=== PATIENT | male | born 1980 | race Caucasian/White ===

== ENCOUNTER 2019-12-23 10:30 | Inpatient (IN) ==
[2019-12-23] MEDS ORDERED: 0.9 % SODIUM CHLORIDE 250 ML IV SCH ×2 (11:00→15:33)
[2019-12-23] MEDS ORDERED: PIPERACILLIN SODIUM/TAZOBACTAM 3.375 GM in DEXTROSE 5% IN WATER 50 ML IV ONE (11:01)
[2019-12-23 11:04] LABS: POC Blood Urea Nitrogen 17 mg/dL (6-20); POC CO2 25 mmol/L (22-30); POC Calcium, Ionized 1.27 mmEq/L (1.16-1.32); POC Chloride 100 mEq/L (96-108); POC Creatinine 0.9 mg/dL (0.6-1.2); POC Glucose, Random 135 mg/dL (70-105); POC Hematocrit 39 % (41-55); POC Potassium 4.4 mEql/L (3.3-5.1); POC Sodium 136 mEq/L (133-145)
[2019-12-23] MEDS ORDERED: PANTOPRAZOLE 40 MG VIAL IV ONE (11:06)
--- NOTE | 2019-12-23 11:25 | Emergency Department Note ---
Abdominal Pain HPI General Chief Complaint: Abdominal Pain Time Seen by Provider: 12/23/19 10:36 Source: EMS Mode of arrival: EMS Limitations: physical limitation History of Present Illness HPI Narrative: Narrative: Mr. Alexandre Soriano is a 39-year-old male who was transported via air flight to this hospital from [facility] in [place]. He had worsening abdominal pain today. Onset 3 days ago. Was found to have appearance of large amount of free air and free fluid compatible with a perforated distal stomach or proximal duodenum. Patient is admits to being a smoker. He also admits to ibuprofen and take several pills at a time a couple times a day off and on for multiple weeks or months related to chronic back issues. He reports feeling short of breath. His pain is been quite severe. Upon arrival here he has received 4 mg of Zofran, 3 mg of Dilaudid, a liter of lactated Ringer, a total of 875 of fentanyl, and a nasogastric tube was placed and has output of 650 cc of sanguinous burgundy appearing aspirate. He has been tachycardic in the 1 25- 1 35 range most of this time. Patient rates his pain at 8/10. He has had melanotic type of stools yesterday and the day before but not yet or today. No previous history that he knows of of ulcer. He has taken Zantac quite a bit in the past for some acid reflux type of symptoms. He regularly drinks alcohol maybe once a week at the most but not heavy. Denies drugs. Smokes marijuana a couple times a month. No prior surgeries. He denies allergies. Chart review reveals no antibiotics have been given at this point. Zosyn will be ordered. No Covid test has been done. Rapid Covid test being ordered. Related Data Home Medications Medication Instructions Recorded Confirmed No Known Home Meds 12/23/19 12/23/19 Allergies Allergy/AdvReac Type Severity Reaction Status Date / Time No Known Drug Allergies Allergy Unverified 12/23/19 11:32 Review of Systems ROS ROS Narrative: Narrative: He describes feeling quite short of breath. He describes some chest discomforts. He sleep enough that it is hard to get better history on this. He has a history of some acid reflux. Denies fevers. Has had chills last 3 days No sore throat. Has had a little runny nose. No nasal congestion. Has not been exposed to Covid Denies dysuria He has chronic back pain no major changes. He has a history of fractures of several vertebra due to snowboarding accident. No headaches but does feel a little lightheaded/dizzy No anxiety or depression. [facility] Narrative Patient History Narrative: Narrative: Denies diabetes, asthma, kidney stones, pancreatitis, peptic ulcer disease, seizures, anxiety, depression. Medical/Surgical/Family History All Active Problems Perforated peptic ulcer (Acute) Elevated WBC count (Acute) Sinus tachycardia (Acute) Coronary artery disease (Acute) Elevated d-dimer (Acute) History of vertebral fracture (Acute) Cigarette smoker (Acute) Medical History (Updated 12/23/19 @ 11:40 by Servando Esposito DO) Cigarette smoker (Acute) History of vertebral fracture (Acute) Surgical History (Updated 12/23/19 @ 11:13 by Servando Esposito DO) No history of previous surgery (Acute) Social History Smoking Status: Current every day smoker Alcohol Intake Frequency: a few times a month Substance Use: marijuana (Smokes a few times a month.) Exam Narrative Narrative: Narrative: General Limitations: physical limitation General appearance: Present consternation (On exam and all exam), grimacing (With abdominal exam.), in distress (Laying quite still. Any abdominal touching brings expressions of discomfort.), nontoxic and sleepy (But fairly easily arouses with tactile stimulation or with being spoken to.) Head Head: Present atraumatic and normocephalic Eye Eye: Present normal appearance, PERRL, EOMI and other (Lower conjunctival sacs.) ENT ENT: Present normal oropharynx and mucous membranes moist Neck Neck: Present trachea midline; Absent lymphadenopathy and thyromegaly Chest Chest: Present symmetric chest wall rise Respiratory Respiratory: Present normal lung sounds bilaterally; Absent respiratory dist ress, rales/crackles, wheezes, stridor, accessory muscle use and prolonged expiratory phase Cardiovascular Cardiovascular: Present regular rate and tachycardia; Absent systolic murmur and diastolic murmur Adbominal Abdominal: Present tenderness (Diffuse but subjectively more in the epigastric upper half.), guarding, rigidity and other (Difficult to examine due to rigidity and discomforts. He has a nasogastric tube in place which is draining burgundy colored small amounts of liquid treatment late.); Absent distention, organomegaly and mass Extremities Extremities: Present other (Mild pallor but normal capillary refill.) Back Back: Neurological Neurological: Present oriented X3 and other (Rather sleepy and at times almost seems confused but this is attributed to his nausea and pain medications. Most the time he is quite able to respond appropriately seems to have good memory of past circumstances.) Psychiatric Psychiatric: Present flat affect, serious and pleasant; Absent depressed, agitated, anxious and poor eye contact Skin Skin: Present cool and dry; Absent cyanosis and pallor Course Vital Signs Vital signs: Vital Signs Temperature 98.1 F 12/23/19 10:32 Pulse Rate 135 H 12/23/19 10:32 Respiratory Rate 18 12/23/19 10:32 Blood Pressure 118/93 12/23/19 10:32 Pulse Oximetry (%) 98 12/23/19 10:32 Temperature 98.1 F 12/23/19 10:32 Pulse Rate 135 H 12/23/19 10:32 Respiratory Rate 18 12/23/19 10:32 Blood Pressure 118/93 12/23/19 10:32 Pulse Oximetry (%) 98 12/23/19 10:32 [facility] MDM Narrative Medical decision making narrative: Narrative: 10:48 AM - I received a previous phone call regarding this patient regarding deyanira cota from [facility], [place], [place], with perforated viscus signs on CT scan, tachycardia and being transported here. Dr. Paulson, general surgeon, confirmed that he is excepting or willing with this patient. Chart review includes (from [facility], drawn: CT abdomen and pelvis showing * large amount of free air and free fluid compatible with perforated distal stomach or proximal duodenum. * Extensive LAD coronary calcifications. * Anterior wedge fractures T8, T11, L1. * Bilateral L5 pars defect with 4 mm anterior subluxation. * 4 cm hiatal hernia with stomach quite distended with fluid and food. CMP Labs demonstrate: * Unremarkable electrolytes. * BUN 15, creatinine 1.01. * Liver function tests normal. Alk phos normal at 97. Bilirubin 0.24. * Troponin was pending. * Lactic acid 1.4. * Lipase 41. CBC : * Elevated white count of 19.3 * H&H 12.4/39.0. RBC 4.48. No prior available. There is a left shift. 11:08 AM - I repeated the EKG which demonstrates sinus tachycardia. He has persisted with this since arrival. Probable LVH. I have requested the troponin from [facility]. Protonix was given up their 40 mg IV. We will go ahead with an additional 40. Zosyn ordered. Covid testing pending. 11:35 AM - spoke with Dr. Sagar Paulson, general surgeon, who will be overseeing patient's additional care and taking him to surgery fairly quickly. POC Chem-8 demonstrates a white count again of 19.1. Hemoglobin is only minimally decreased at 11.8, hematocrit 36.6. This implies relative stability or not a rapid bleeding ulcer. But because of the acute severity and circumstances will be going to surgery fairly quickly. Is elevated D-dimer is of a lesser concern and that surgical intervention at this point in time and likely due to the acute stress reaction. Coronary artery calcifications noted on the CT scan which is quite premature for him. This should be followed up but should not stop him from going to surgery due to the non-ACS appearance of his EKG and needing corrective surgical intervention of the underlying perforated viscus. Lab Data Result diagrams: 12/23/19 10:49 Discharge Plan Patient/Caregiver Discharge Instructions Pt seen by [employer]OR/PA only: No Clinical Impression: Perforated peptic ulcer, Sinus tachycardia, Elevated d-dimer Elevated WBC count Qualifiers: Leukocytosis type: unspecified Qualified Code(s): D72.829 - Elevated white blood cell count, unspecified Coronary artery disease Qualifiers: Coronary Disease-Associated Artery/Lesion type: [place] artery [place] vs. transplanted heart: [place] heart Associated angina: angina presence unspecified Qualified Code(s): I25.10 - Atherosclerotic heart disease of [place] coronary artery without angina pectoris Patient Disposition: Xfer As Inpt ([facility]) Condition: Serious Follow up with: Caitlin Deleon MD [Primary Care Provider] - Prescriptions: No Action No Known Home Meds RF: 0
[2019-12-23 11:32] LABS: Basophils # (Auto) 0.03 K/mcL (0.00-0.20); Basophils % (Auto) 0.2 % (0.0-2.0); Eosinophils # (Auto) 0.12 K/mcL (0.00-0.70); Eosinophils % (Auto) 0.6 % (0.0-7.0); Hematocrit 36.6 % (41.0-55.0); Hemoglobin 11.8 g/dL (13.5-16.5); Lymphocytes # (Auto) 0.95 K/mcL (1.50-4.80); Mean Cell Volume 87.4 fL (80.0-100.0); Mean Corpuscular HGB Conc 32.2 g/dL (31.0-36.0); Monocytes # (Auto) 0.72 K/mcL (0.10-0.90); Monocytes % (Auto) 3.8 % (1.0-12.0); Neutrophils % (Auto) 90.4 % (38.0-78.0); Platelet Count 541 K/mcL (140-440); RBC 4.19 M/mcL (4.50-5.90); Red Cell Distribution Width 13.2 % (11.5-14.5); WBC 19.1 K/mcL (4.5-11.0)
[2019-12-23] MEDS ORDERED: 0.9 % SODIUM CHLORIDE 2,000 ML IV ONE (11:46)
[2019-12-23 11:48] LABS: Partial Thromboplastin Time 31.6 sec (20.0-37.0); Prothrombin Time 13.8 sec (11.9-14.5)
[2019-12-23] MEDS ORDERED: HYDROmorphone 1 MG/ML SYRINGE IV ONE (11:56)
--- NOTE | 2019-12-23 11:56 | General Surg History&Physical ---
HPI History of Present Illness Patient information: Note initiated : 12/23/19 at 11:45 am Service Date, if different from initiated Date: [] Patient: Anton Novoa 39 y/o M admitted on for Abdominal Pain. Chief Complaint: [] Chief complaint: perforated viscus; upper GI bleed History of present illness: Mr. Novoa is a 39 year old M with a 3 to four-day history of abdominal pain. The pain became much more severe last evening and he was seen at emergency facility in [place]. He was noted to have free intra- abdominal air head CT shows massive amount of free air with fluid around the antrum and duodenum. The stomach is also massively dilated and filled with fluid. Patient was transferred here for further care. He is a alert. He had over 700 cc of fluid in the stomach which was coffee-ground type fluid. He was tachycardic but with stable blood pressure. Hemoglobin is 11.6. Other labs are pending. Rapid COVID has been done. Patient has either perforated gastric or duodenal ulcer with free fluid and gas. He is counseled for exploratory laparotomy and probable Pilo patch closure this morning. Review of Systems All systems: reviewed and no additional remarkable complaints except as stated Constitutional Constitutional: Present weakness and weight loss (15 pound weight loss past 2 weeks) Cardiovascular Cardiovascular: Present dyspnea on exertion and rapid heart rate Respiratory Respiratory: Absent dyspnea on exertion, wheezing and chest congestion Gastrointestinal Gastrointestinal: Present abdominal pain, coffee ground emesis, cramping, dy spepsia, early satiety, heartburn and hematemesis Genitourinary Genitourinary: difficulty urinating Musculoskeletal Musculoskeletal: Absent muscle weakness, numbness, stiffness and tingling Integumentary Integumentary: Absent changing lesions, pruritus, rash and swelling Neurological Neurological: Absent headache(s) and syncope Psychiatric Psychiatric: Present anxiety Endocrine Endocrine: Absent change in body appearance and palpitations Hematologic/Lymphatic Hematologic/Lymphatic: Absent easy bleeding, easy bruising and lymphadenopathy Allergic/Immunologic Allergic/Immunologic: Absent tongue swelling, throat swelling, uticaria, whe ezing and lip swelling PFSH PFSH All Active Problems Acute blood loss anemia (Acute) Upper gastrointestinal bleeding (Acute) Perforated peptic ulcer (Acute) Elevated WBC count (Acute) Sinus tachycardia (Acute) Coronary artery disease (Acute) Elevated d-dimer (Acute) History of vertebral fracture (Acute) Cigarette smoker (Acute) Medical History Cigarette smoker (Acute) History of vertebral fracture (Acute) Surgical History No history of previous surgery (Acute) Social History smoking status: Current every day smoker alcohol intake frequency: a few times a month substance use type: marijuana (Smokes a few times a month.) MEDS/ALLERGIES Home Medications and Allergies Home Medications Medication Instructions Recorded Confirmed Type No Known Home Meds 12/23/19 12/23/19 History Allergies Allergy/AdvReac Type Severity Reaction Status Date / Time No Known Drug Allergies Allergy Unverified 12/23/19 11:32 Physical Examination Vital Signs Vital signs: Temp Pulse Resp BP Pulse Ox 98.1 F 135 H 21 120/97 99 12/23/19 10:32 12/23/19 10:32 12/23/19 11:31 12/23/19 11:31 12/23/19 11:31 General physical appearance General physical exam: moderate distress and moderate pain Eyes Eye exam: PERRL and normal ocular movement ENT ENT exam: negative no hearing loss Head Head exam IM: Present atraumatic, normal inspection and normocephalic Neck Neck exam: no masses, no bruits, trachea midline and no lymphadenopathy Cardiovascular Cardiovascular exam IM: Present normal rate and rhythm, RRR, +S1 and +S2; Absent JVD Respiratory Respiratory exam: normal expansion, normal respiratory effort, clear to percussion and clear to auscultation Abdomen Abdomen: Present soft, non tender, tender, bowel sounds, guarding, rigid and distended Genitourinary Genitourinary (Male): Present normal penis with no external lesions and testicles present Integumentary Integumentary: Present no rash, no growths and no abnormal pigmentation Neurologic Neurologic: Present normal coordination, normal sensation, disoriented, combative and deep tendon reflexes Musculoskeletal Musculoskeletal: Present normal gait and normal posture Psychiatric Psychiatric: Present oriented to time, oriented to person, oriented to place, speech is normal and memory intact Results Labs Result diagrams: 12/23/19 10:49 Labs: Abnormal lab results 12/23/19 12/23/19 Range/Units 10:49 10:54 WBC 19.1 H (4.5-11.0) K/mcL RBC 4.19 L (4.50-5.90) M/mcL Hgb 11.8 L (13.5-16.5) g/dL Hct 36.6 L (41.0-55.0) % POC Hct 39 L (41-55) % Plt Count 541 H (140-440) K/mcL Neut % (Auto) 90.4 H (38.0-78.0) % Lymph % (Auto) 5.0 L (15.0-49.0) % Lymph # (Auto) 0.95 L (1.50-4.80) K/mcL Absolute Neutrophils 17.31 H (1.80-8.00) K/mcL POC Glucose 135 H (70-105) mg/dL All other labs normal. A/P Assessment and plan (1) Perforated peptic ulcer: Status: Acute (2) Upper gastrointestinal bleeding: Status: Acute (3) Acute blood loss anemia: Status: Acute (4) Coronary artery disease: Status: Acute Qualifiers: Associated angina: angina presence unspecified Coronary Disease- Associated Artery/Lesion type: [place] artery [place] vs. transplanted heart: [place] heart Qualified Code(s): I25.10 - Atherosclerotic heart disease of [place] coronary artery without angina pectoris Narrative A/P Narrative: patient has received 3 L of normal saline Zosyn 3.375 g IV every 6 hours Type and cross for 4 units packed red cells Pantoprazole 80 mg a day and then 40 mg twice a day Patient counseled for exploratory laparotomy with abdominal washout and probable Gram patch closure Nasogastric decompression Time Spent With Patient Time: Total time spent is greater than 50% in coordination of care (as documented) at patient's floor/unit and/or counseling patient:
[2019-12-23] MEDS ORDERED: MIDAZOLAM 5 MG/5 ML VIAL ONE (12:23)
[2019-12-23] MEDS ORDERED: ONDANSETRON 4 MG/2 ML VIAL ONE (12:23)
[2019-12-23] MEDS ORDERED: ROCURONIUM 10 MG/ML ML IV ONE (12:23)
[2019-12-23] MEDS ORDERED: SUCCINYLCHOLINE 20 MG/ML ML IV ONE (12:23)
[2019-12-23] MEDS ORDERED: GLYCOPYRROLATE 0.2 MG/ML VIAL IV ONE (12:23)
[2019-12-23] MEDS ORDERED: VASOPRESSIN 20 UNIT/ML VIAL ONE (12:23)
[2019-12-23] MEDS ORDERED: DEXAMETHASONE 10 MG/ML VIAL ONE (12:23)
[2019-12-23] MEDS ORDERED: fentaNYL 250 MCG/5 ML VIAL IV ONE (12:23)
[2019-12-23] MEDS ORDERED: PHENYLEPHRINE 10 MG/ML VIAL ONE (12:23)
[2019-12-23] MEDS ORDERED: LIDOCAINE HCL/PF 100 MG/5 ML SYRINGE IV ONE (12:23)
[2019-12-23] MEDS ORDERED: HYDROmorphone 1 MG/ML SYRINGE ONE (12:23)
[2019-12-23] MEDS ORDERED: KETOROLAC 30 MG/ML VIAL ONE (12:23)
[2019-12-23] MEDS ORDERED: KETAMINE 100 MG/ML ML ONE (12:23)
[2019-12-23] MEDS ORDERED: SUGAMMADEX SODIUM 200 MG/2 ML VIAL IV ONE (12:23)
[2019-12-23] MEDS ORDERED: PROPOFOL 200 MG/20 ML VIAL IV ONE (12:23)
[2019-12-23] MEDS ORDERED: 0.9 % SODIUM CHLORIDE 1,000 ML IV ONE (12:25)
[2019-12-23] MEDS ORDERED: METHOCARBAMOL 1,000 MG/10 ML VIAL IV PRN (13:04)
[2019-12-23] MEDS ORDERED: LABETALOL 5 MG/ML ML IV PRN (13:04)
[2019-12-23] MEDS ORDERED: LACTATED RINGERS 250 ML IV PRN (13:04)
[2019-12-23] MEDS ORDERED: PROMETHAZINE 25 MG/ML VIAL IM PRN (13:04)
[2019-12-23] MEDS ORDERED: MEPERIDINE 50 MG/ML INJECTION IM PRN (13:04)
[2019-12-23] MEDS ORDERED: fentaNYL 100 MCG/2 ML VIAL IV PRN (13:04)
[2019-12-23] MEDS ORDERED: MEPERIDINE 25 MG/ML SYRINGE IV PRN (13:04)
[2019-12-23] MEDS ORDERED: NALOXONE HCL 0.4 MG/ML VIAL IV PRN (13:04)
[2019-12-23] MEDS ORDERED: IPRATROPIUM/ALBUTEROL 3 ML AMPUL.NEB NEB PRN (13:04)
[2019-12-23] MEDS ORDERED: ACETAMINOPHEN 1,000 MG/100 ML BOTTLE IV ONE (13:04)
[2019-12-23] MEDS ORDERED: METOPROLOL TARTRATE 5 MG/5 ML VIAL IV PRN (13:04)
[2019-12-23] MEDS ORDERED: FLUMAZENIL 0.1 MG/ML ML IV PRN (13:04)
[2019-12-23] MEDS ORDERED: LACTATED RINGERS 1,000 ML IV SCH (13:15)
--- NOTE | 2019-12-23 14:12 | Brief Operative Note ---
Brief Operative Note Date of procedure: 12/23/19 Pre-op diagnosis: perforated viscus with peritonitis Post-op diagnosis: other (perforated gastric ulcer with peritonitis;upper G I bleed) Procedure: laparotomy with total peritoneal lavage ;closure of gastric ulcer wi th rubén patch Grafts/Implants: No (jayy drain x2) Anesthesia: GETA Findings: extensive peritonitis with large volume of gastric fluid Complications: none Surgeon: Irene Paulson Estimated blood loss (cc): 20 Specimens Removed/Pathology: none sent Condition: stable Disposition: PACU
[2019-12-23 14:15] LABS: Amphetamine Screen,Urine Suspect positive; Barbiturate Screen,Urine None detected; Benzodiazepines Screen,Urine None detected; Cannabinoid Screen,Urine Suspect Positive; Cocaine Screen,Urine None detected; Opiate Screen,Urine Suspect Positive; Oxycodone, Urine Screen None detected; Phencyclidine Screen,Urine None detected
[2019-12-23] MEDS: 0.9 % SODIUM CHLORIDE 1,000 ML IV SCH (17:02)
[2019-12-23] MEDS: PIPERACILLIN SODIUM/TAZOBACTAM 3.375 GM in DEXTROSE 5% IN WATER 50 ML IV SCH (17:18)
[2019-12-23] MEDS: METOCLOPRAMIDE 10 MG/2 ML VIAL IV SCH (17:19)
[2019-12-23] MEDS: PANTOPRAZOLE 40 MG VIAL IV SCH (17:19)
[2019-12-23] MEDS: ACETAMINOPHEN 1,000 MG/100 ML BOTTLE IV SCH (20:45)
[2019-12-24] MEDS: METOCLOPRAMIDE 10 MG/2 ML VIAL IV SCH ×5 (00:18→23:38)
[2019-12-24] MEDS: PIPERACILLIN SODIUM/TAZOBACTAM 3.375 GM in DEXTROSE 5% IN WATER 50 ML IV SCH ×4 (00:18→17:10)
[2019-12-24] MEDS: 0.9 % SODIUM CHLORIDE 1,000 ML IV SCH ×5 (00:18→23:38)
[2019-12-24] MEDS: ACETAMINOPHEN 1,000 MG/100 ML BOTTLE IV SCH ×3 (02:06→14:31)
[2019-12-24] MEDS: PANTOPRAZOLE 40 MG VIAL IV SCH ×2 (08:04→17:09)
[2019-12-24] MEDS: ONDANSETRON 4 MG/2 ML VIAL IV PRN (08:25)
[2019-12-24 09:10] LABS: Basophils # (Auto) 0.03 K/mcL (0.00-0.20); Basophils % (Auto) 0.2 % (0.0-2.0); Eosinophils # (Auto) 0.01 K/mcL (0.00-0.70); Eosinophils % (Auto) 0.1 % (0.0-7.0); Hematocrit 27.3 % (41.0-55.0); Hemoglobin 8.4 g/dL (13.5-16.5); Lymphocytes # (Auto) 1.15 K/mcL (1.50-4.80); Mean Cell Volume 88.1 fL (80.0-100.0); Mean Corpuscular HGB Conc 30.8 g/dL (31.0-36.0); Mean Platelet Volume 10.3 fL (7.4-10.4); Monocytes # (Auto) 0.74 K/mcL (0.10-0.90); Monocytes % (Auto) 5.1 % (1.0-12.0); Neutrophils % (Auto) 86.6 % (38.0-78.0); Platelet Count 380 K/mcL (140-440); Red Cell Distribution Width 13.8 % (11.5-14.5); WBC 14.4 K/mcL (4.5-11.0)
[2019-12-24 09:38] LABS: ALT/SGPT 10 U/L (<40); AST/SGOT 13 U/L (<40); Albumin 2.6 gm/dL (3.2-5.2); Albumin/Globulin Ratio 1.1 (1.0-2.3); Alkaline Phosphatase 52 U/L (39-117); Bilirubin,Direct < 0.2 mg/dL (<0.3); Bilirubin,Total 0.3 mg/dL (0.1-1.0); Blood Urea Nitrogen 19 mg/dL (6-20); Calcium 7.9 mg/dL (8.6-10.4); Carbon Dioxide 23 mmol/L (22-30); Chloride 104 mmol/L (96-108); Globulin 2.3 gm/dL (2.2-3.7); Glomerular Filtration Rate 84; Glucose 108 mg/dL (70-105); Lactate Dehydrogenase 111 U/L (135-225); Phosphorous 3.8 mg/dL (2.5-4.5); Triglycerides 30 mg/dL (<150)
[2019-12-24] MEDS ORDERED: MEPERIDINE 25 MG/ML SYRINGE IV PRN (12:29)
[2019-12-24] MEDS ORDERED: BENZOCAINE 1 SPRAY BOTTLE TOPICAL PRN (12:37)
--- NOTE | 2019-12-24 12:45 | General Surgery Progress Note ---
SUBJECTIVE Subjective Patient information: Note initiated : 12/24/19 at 12:36 pm Service Date, if different from initiated Date: [] Patient: Anton Novoa 39 y/o M admitted on 12/23/19 for Abdominal Pain. Chief Complaint: [] Principal diagnosis: GI bleed; perforated gastric ulcer; blood loss anemia Interval history: patient has been relatively stable throughout the night. His blood pressure has been in the 90s and he's had mild tachycardia. There is no drainage of gastric or biliary juices through his PATRICK. NG tube has cleared of blood. White blood count 14.4, hemoglobin 8.4, hematocrit 27.3, potassium 4.1, BUN 19, creatinine 1.1, magnesium 1.6. Constitutional Vitals: Vital Signs Temp Pulse Resp BP Pulse Ox 98.0 F 97 H 18 96/61 94 12/24/19 08:00 12/24/19 08:00 12/24/19 08:00 12/24/19 08:00 12/24/19 08:00 Period Temp Pulse Resp BP Sys/Amin Pulse Ox Last 24 Hr 98.0 F-99.5 F 90-110 10-18 86-111/54-68 93-100 Intake and Output 12/23/19 12/24/19 12/24/19 22:59 05:59 13:59 Intake Total Output Total Balance Weight Intake & Output: Intake & Output 12/23/19 12/24/19 12/24/19 22:59 05:59 13:59 Intake Total Output Total Balance Weight Intake: IV Sodium Chloride 0.9% 1,000 ml @ 150 mls/hr IV .Q6H40M TOREY Rx#: [id number] Lactated Ringers 1,000 ml @ 20 mls/hr IV .Q24H TOREY Rx#: [id number] Zosyn 3.375 gm In Dextrose 5% in Water 50 ml @ 100 mls/hr IV Q6H TOREY Rx#:[id number] Oral Tube Feeding IV - Manual Only Output: Gastric Drainage Left Nare Drainage Abdomen A Abdomen B Drainage Abdomen A Abdomen B Urine Catheter Amount Estimated Blood Loss Other: Urine Appearance Clear Uretheral (Casey) Clear Urine Color Dark Yellow Uretheral (Casey) Dark Yellow Urine Odor Normal Uretheral (Casey) Head Head exam: Present atraumatic, normal inspection and normocephalic Eye Eye exam: Present EOMI and PERRL Pupils: Present normal accommodation and PERRL ENT ENT exam: Present normal exam and normal oropharynx Neck Neck exam: Present full ROM and normal inspection; Absent tenderness Respiratory Respiratory exam: Present normal respiratory exam and CTAB; Absent rales, rhonchi and wheezes Cardiovascular Cardiovascular exam: Present normal rate and rhythm, RRR, +S1, +S2 and tachycardia (mild persistent tachycardia in the 100s) GI/Abdominal GI/Abdominal exam: Present diminished bowel sounds, distended and tenderness (incisional tenderness) Extremities Exam Extremities exam: Present full ROM and neurovascular intact Back Exam Back exam: Present normal inspection Neurological Exam Neurological exam: Present alert, CN II-XII intact, oriented X3 and reflexes normal Psychiatric Psychiatric exam: Present normal affect and normal mood Skin Skin exam: Present intact, normal color and warm A/P Assessment and plan (1) Perforated peptic ulcer: Status: Acute (2) Upper gastrointestinal bleeding: Status: Acute (3) Acute blood loss anemia: Status: Acute (4) Sinus tachycardia: Status: Acute Narrative A/P Narrative: patient is clinically stable. His pain medicine will be changed to meperidine 25 mg IV every to 2 hours as needed. It is to be withheld if his blood pressures below 90. He will not be transfused unless his hemoglobin drops below 7. Time Spent With Patient Time: Total time spent is greater than 50% in coordination of care (as documented) at patient's floor/unit and/or counseling patient:
[2019-12-24] MEDS: MEPERIDINE 25 MG/ML SYRINGE IV PRN ×5 (12:53→23:38)
[2019-12-25] MEDS: MEPERIDINE 25 MG/ML SYRINGE IV PRN ×6 (03:56→20:42)
[2019-12-25] MEDS: PIPERACILLIN SODIUM/TAZOBACTAM 3.375 GM in DEXTROSE 5% IN WATER 50 ML IV SCH ×4 (05:52→17:31)
[2019-12-25] MEDS: METOCLOPRAMIDE 10 MG/2 ML VIAL IV SCH ×3 (05:53→17:21)
[2019-12-25] MEDS: PANTOPRAZOLE 40 MG VIAL IV SCH ×2 (07:42→17:21)
[2019-12-25] MEDS: 0.9 % SODIUM CHLORIDE 1,000 ML IV SCH ×3 (07:59→20:54)
[2019-12-25 08:07] LABS: Basophils # (Auto) 0.03 K/mcL (0.00-0.20); Basophils % (Auto) 0.2 % (0.0-2.0); Eosinophils # (Auto) 0.16 K/mcL (0.00-0.70); Hematocrit 26.3 % (41.0-55.0); Hemoglobin 8.3 g/dL (13.5-16.5); Lymphocytes # (Auto) 1.01 K/mcL (1.50-4.80); Lymphocytes % (Auto) 6.1 % (15.0-49.0); Mean Cell Volume 86.8 fL (80.0-100.0); Mean Corpuscular HGB Conc 31.6 g/dL (31.0-36.0); Mean Platelet Volume 10.2 fL (7.4-10.4); Monocytes # (Auto) 0.52 K/mcL (0.10-0.90); Monocytes % (Auto) 3.1 % (1.0-12.0); Neutrophils % (Auto) 89.6 % (38.0-78.0); Platelet Count 382 K/mcL (140-440); RBC 3.03 M/mcL (4.50-5.90); Red Cell Distribution Width 14.2 % (11.5-14.5); WBC 16.6 K/mcL (4.5-11.0)
[2019-12-25 08:31] LABS: ALT/SGPT 10 U/L (<40); AST/SGOT 15 U/L (<40); Albumin 2.6 gm/dL (3.2-5.2); Albumin/Globulin Ratio 0.9 (1.0-2.3); Alkaline Phosphatase 70 U/L (39-117); Bilirubin,Direct < 0.2 mg/dL (<0.3); Bilirubin,Total 0.3 mg/dL (0.1-1.0); Blood Urea Nitrogen 12 mg/dL (6-20); Calcium 8.2 mg/dL (8.6-10.4); Carbon Dioxide 22 mmol/L (22-30); Chloride 104 mmol/L (96-108); Globulin 2.9 gm/dL (2.2-3.7); Glomerular Filtration Rate 94; Glucose 92 mg/dL (70-105); Lactate Dehydrogenase 120 U/L (135-225); Phosphorous 2.2 mg/dL (2.5-4.5); Triglycerides 93 mg/dL (<150); Uric Acid 2.4 mg/dL (2.5-8.0)
[2019-12-25] MEDS ORDERED: POTASSIUM PHOSPHATE 40 MEQ in DEXTROSE 5% IN WATER 500 ML IV ONE (11:00)
--- NOTE | 2019-12-25 13:47 | General Surgery Progress Note ---
SUBJECTIVE Subjective Patient information: Note initiated : 12/25/19 at 1:42 pm Service Date, if different from initiated Date: [] Patient: Anton Noova 39 y/o M admitted on 12/23/19 for Abdominal Pain. Chief Complaint: [] Principal diagnosis: GI bleed; perforated gastric ulcer; blood loss anemia Interval history: patient is clinically stable. He has improved. Blood pressure but still has a heart rate in the 110-120 range. He has low-grade temperature elevation. White blood count 16.6, hemoglobin 8.3, phosphorus 2.2, potassium 4.1. PATRICK drainage is primarily serous. He is starting to have flatus. Constitutional Vitals: Vital Signs Temp Pulse Resp BP Pulse Ox 100.0 F H 115 H 18 113/71 92 12/25/19 12:00 12/25/19 12:00 12/25/19 12:00 12/25/19 12:00 12/25/19 12:00 Period Temp Pulse Resp BP Sys/Amin Pulse Ox Last 24 Hr 98.5 F-100.1 F 96-115 18-26 106-120/69-75 90-94 Intake and Output 12/24/19 12/25/19 12/25/19 21:59 05:59 13:59 Intake Total 1165 1070 1050 Output Total 1215 1420 650 Balance -50 -350 400 Weight 202 lb 202 lb Patient Weight 12/26/19 05:59 Weight 202 lb Intake & Output: Intake & Output 12/24/19 12/25/19 12/25/19 21:59 05:59 13:59 Intake Total 1165 1070 1050 Output Total 1215 1420 650 Balance -50 -350 400 Weight 202 lb 202 lb Intake: IV 1050 1020 1050 Sodium Chloride 0.9% 1,000 ml @ 7281 477 7329 150 mls/hr IV .Q6H40M TOREY Rx#: [id number] Zosyn 3.375 gm In Dextrose 5% 50 50 50 in Water 50 ml @ 100 mls/hr IV Q6H TOREY Rx#:[id number] Oral 115 50 Output: Gastric Drainage 0 Left Nare 0 Drainage 20 Abdomen A 10 Abdomen B 10 Drainage 40 Abdomen A 20 Abdomen B 20 Urine Catheter Amount 1175 Void Amount 1400 650 Other: Urine Appearance Clear Clear Clear Uretheral (Casey) Clear Clear Urine Color Bright Yellow Light Leila Dark Yellow Uretheral (Casey) Bright Yellow Dark Yellow Urine Odor Strong Strong Normal Uretheral (Casey) Normal Head Head exam: Present atraumatic, normal inspection and normocephalic Eye Eye exam: Present EOMI and PERRL Pupils: Present normal accommodation and PERRL ENT ENT exam: Present normal exam and normal oropharynx Neck Neck exam: Present full ROM and normal inspection; Absent tenderness Respiratory Respiratory exam: Present normal respiratory exam and CTAB; Absent rales, rhonchi and wheezes Cardiovascular Cardiovascular exam: Present normal rate and rhythm, RRR, +S1, +S2 and tachycardia (mild persistent tachycardia in the 100s) GI/Abdominal GI/Abdominal exam: Present diminished bowel sounds, distended and tenderness (incisional tenderness) Extremities Exam Extremities exam: Present full ROM and neurovascular intact Back Exam Back exam: Present normal inspection Psychiatric Psychiatric exam: Present normal affect and normal mood Skin Skin exam: Present intact, normal color and warm A/P Assessment and plan (1) Perforated peptic ulcer: Status: Acute (2) Acute blood loss anemia: Status: Acute Narrative A/P Narrative: patient is slowly improving. There is no evidence of ongoing bleeding. Based on his clear bilious nasogastric drainage. Drainage from the d rains above and below his repair shows serous fluid and no evidence of blood or bilious fluid. Casey catheter will be discontinued. Patient will be ambulated Time Spent With Patient Time: Total time spent is greater than 50% in coordination of care (as documented) at patient's floor/unit and/or counseling patient:
[2019-12-25] MEDS ORDERED: ACETAMINOPHEN 1,000 MG/100 ML BOTTLE IV PRN (14:41)
[2019-12-25] MEDS ORDERED: HYDROmorphone 1 MG/ML SYRINGE IV PRN (21:55)
[2019-12-25] MEDS ORDERED: diphenhydrAMINE 50 MG/ML VIAL IV PRN (21:57)
[2019-12-25] MEDS: diphenhydrAMINE 50 MG/ML VIAL IV PRN (22:11)
[2019-12-25] MEDS: ACETAMINOPHEN 1,000 MG/100 ML BOTTLE IV SCH (22:11)
[2019-12-26] MEDS: METOCLOPRAMIDE 10 MG/2 ML VIAL IV SCH ×4 (00:17→17:44)
[2019-12-26] MEDS: PIPERACILLIN SODIUM/TAZOBACTAM 3.375 GM in DEXTROSE 5% IN WATER 50 ML IV SCH ×4 (00:17→17:38)
[2019-12-26] MEDS: KETOROLAC 30 MG/ML VIAL IV SCH ×4 (00:17→19:35)
[2019-12-26] MEDS: ACETAMINOPHEN 1,000 MG/100 ML BOTTLE IV SCH ×4 (04:00→22:28)
[2019-12-26] MEDS: 0.9 % SODIUM CHLORIDE 1,000 ML IV SCH ×5 (05:50→22:28)
[2019-12-26] MEDS: PANTOPRAZOLE 40 MG VIAL IV SCH ×2 (07:56→16:43)
[2019-12-26 09:58] LABS: Basophils # (Auto) 0.04 K/mcL (0.00-0.20); Basophils % (Auto) 0.3 % (0.0-2.0); Eosinophils # (Auto) 0.32 K/mcL (0.00-0.70); Eosinophils % (Auto) 2.2 % (0.0-7.0); Hematocrit 23.9 % (41.0-55.0); Hemoglobin 7.7 g/dL (13.5-16.5); Lymphocytes # (Auto) 0.91 K/mcL (1.50-4.80); Lymphocytes % (Auto) 6.2 % (15.0-49.0); Mean Cell Volume 86.6 fL (80.0-100.0); Mean Corpuscular HGB Conc 32.2 g/dL (31.0-36.0); Mean Platelet Volume 10.2 fL (7.4-10.4); Monocytes # (Auto) 0.66 K/mcL (0.10-0.90); Monocytes % (Auto) 4.5 % (1.0-12.0); Neutrophils % (Auto) 86.8 % (38.0-78.0); Platelet Count 390 K/mcL (140-440); RBC 2.76 M/mcL (4.50-5.90); Red Cell Distribution Width 14.5 % (11.5-14.5); WBC 14.6 K/mcL (4.5-11.0)
[2019-12-26 10:22] LABS: ALT/SGPT 11 U/L (<40); AST/SGOT 16 U/L (<40); Albumin 2.3 gm/dL (3.2-5.2); Albumin/Globulin Ratio 0.8 (1.0-2.3); Alkaline Phosphatase 92 U/L (39-117); Bilirubin,Direct < 0.2 mg/dL (<0.3); Bilirubin,Total 0.3 mg/dL (0.1-1.0); Blood Urea Nitrogen 11 mg/dL (6-20); Calcium 8.1 mg/dL (8.6-10.4); Carbon Dioxide 23 mmol/L (22-30); Chloride 103 mmol/L (96-108); Glomerular Filtration Rate 107; Glucose 83 mg/dL (70-105); Lactate Dehydrogenase 170 U/L (135-225); Phosphorous 2.5 mg/dL (2.5-4.5); Triglycerides 85 mg/dL (<150); Uric Acid 2.8 mg/dL (2.5-8.0)
--- NOTE | 2019-12-26 13:03 | General Surgery Progress Note ---
SUBJECTIVE Subjective Patient information: Note initiated : 12/26/19 at 12:59 pm Service Date, if different from initiated Date: [] Patient: Anton Novoa 39 y/o M admitted on 12/23/19 for Abdominal Pain. Chief Complaint: [] Principal diagnosis: GI bleed; perforated gastric ulcer; blood loss anemia Interval history: patient is doing well. He is afebrile. He said flatus and multiple bowel movements. He is tolerated to a clear liquid diet without difficulty. His PATRICK drainage is serous. His incision is healing appropriately. Constitutional Vitals: Vital Signs Temp Pulse Resp BP Pulse Ox 99.2 F H 88 24 H 121/80 93 12/26/19 12:00 12/26/19 12:00 12/26/19 12:00 12/26/19 12:00 12/26/19 12:00 Period Temp Pulse Resp BP Sys/Amin Pulse Ox Last 24 Hr 97.9 F-99.9 F 88-111 16-24 110-121/69-80 93-95 Intake and Output 12/25/19 12/26/19 12/26/19 21:59 05:59 13:59 Intake Total 1100 1250 150 Output Total 568 660 Balance 532 590 150 Weight 197 lb Intake & Output: Intake & Output 12/25/19 12/26/19 12/26/19 21:59 05:59 13:59 Intake Total 1100 1250 150 Output Total 568 660 Balance 532 590 150 Weight 197 lb Intake: IV 1050 1250 50 Sodium Chloride 0.9% 1,000 ml @ 1000 1000 150 mls/hr IV .Q6H40M T[facility]Y Rx#: [id number] Zosyn 3.375 gm In Dextrose 5% 50 50 50 in Water 50 ml @ 100 mls/hr IV Q6H TOREY Rx#:[id number] Oral 50 0 GI Tube Flush 100 Output: Gastric Drainage 50 Left Nare 50 Drainage 10 Abdomen A 5 Abdomen B 5 Drainage 23 Abdomen A 8 Abdomen B 15 Urine Catheter Amount 270 Uretheral (Casey) 270 Void Amount 225 650 Other: Urine Appearance Clear Clear Uretheral (Casey) Clear Urine Color Bright Yellow Bright Yellow Uretheral (Casey) Dark Yellow Urine Odor Normal Stool Size Moderate Stool Color Brown Stool Consistency Liquid # Voids 1 # Bowel Movements 1 # of times incontinent of 1 Bowels Head Head exam: Present atraumatic, normal inspection and normocephalic Eye Eye exam: Present EOMI and PERRL Pupils: Present normal accommodation and PERRL ENT ENT exam: Present normal exam and normal oropharynx Neck Neck exam: Present full ROM and normal inspection; Absent tenderness Respiratory Respiratory exam: Present normal respiratory exam and CTAB; Absent rales, rhonchi and wheezes Cardiovascular Cardiovascular exam: Present normal rate and rhythm, RRR, +S1, +S2 and tachycardia (mild persistent tachycardia in the 100s) GI/Abdominal GI/Abdominal exam: Present diminished bowel sounds, distended and tenderness (incisional tenderness) Additional comments: PATRICK drainage is serous; incision is healing nicely; good active bowel sounds Extremities Exam Extremities exam: Present full ROM and neurovascular intact Neurological Exam Neurological exam: Present alert, CN II-XII intact, oriented X3 and reflexes normal Psychiatric Psychiatric exam: Present normal affect and normal mood Skin Skin exam: Present intact, normal color and warm A/P Assessment and plan (1) Perforated peptic ulcer: Status: Acute (2) Upper gastrointestinal bleeding: Status: Acute (3) Acute blood loss anemia: Status: Acute Time Spent With Patient Time: Total time spent is greater than 50% in coordination of care (as documented) at patient's floor/unit and/or counseling patient:
[2019-12-26] MEDS: MEPERIDINE 25 MG/ML SYRINGE IV PRN ×2 (16:41→20:47)
[2019-12-26] MEDS: diphenhydrAMINE 50 MG/ML VIAL IV PRN (22:27)
[2019-12-27] MEDS: KETOROLAC 30 MG/ML VIAL IV SCH ×4 (00:31→19:02)
[2019-12-27] MEDS: PIPERACILLIN SODIUM/TAZOBACTAM 3.375 GM in DEXTROSE 5% IN WATER 50 ML IV SCH ×4 (00:31→17:28)
[2019-12-27] MEDS: METOCLOPRAMIDE 10 MG/2 ML VIAL IV SCH ×4 (00:31→17:28)
[2019-12-27] MEDS: ACETAMINOPHEN 1,000 MG/100 ML BOTTLE IV SCH ×4 (04:22→22:26)
[2019-12-27 07:03] LABS: Basophils # (Auto) 0.03 K/mcL (0.00-0.20); Basophils % (Auto) 0.3 % (0.0-2.0); Eosinophils # (Auto) 0.29 K/mcL (0.00-0.70); Eosinophils % (Auto) 2.5 % (0.0-7.0); Hemoglobin 7.9 g/dL (13.5-16.5); Lymphocytes # (Auto) 0.76 K/mcL (1.50-4.80); Lymphocytes % (Auto) 6.6 % (15.0-49.0); Mean Cell Volume 85.3 fL (80.0-100.0); Mean Corpuscular HGB Conc 31.6 g/dL (31.0-36.0); Mean Platelet Volume 9.9 fL (7.4-10.4); Monocytes # (Auto) 0.61 K/mcL (0.10-0.90); Monocytes % (Auto) 5.3 % (1.0-12.0); Neutrophils % (Auto) 85.3 % (38.0-78.0); Platelet Count 449 K/mcL (140-440); RBC 2.93 M/mcL (4.50-5.90); Red Cell Distribution Width 14.6 % (11.5-14.5); WBC 11.5 K/mcL (4.5-11.0)
[2019-12-27] MEDS: PANTOPRAZOLE 40 MG VIAL IV SCH ×2 (07:18→17:28)
[2019-12-27] MEDS: HYDROmorphone 1 MG/ML SYRINGE IV PRN ×3 (07:28→19:11)
[2019-12-27] MEDS: 0.9 % SODIUM CHLORIDE 1,000 ML IV SCH ×3 (07:44→17:58)
[2019-12-27 08:05] LABS: ALT/SGPT 11 U/L (<40); AST/SGOT 12 U/L (<40); Albumin 2.2 gm/dL (3.2-5.2); Albumin/Globulin Ratio 0.6 (1.0-2.3); Alkaline Phosphatase 91 U/L (39-117); Bilirubin,Direct < 0.2 mg/dL (<0.3); Bilirubin,Total 0.2 mg/dL (0.1-1.0); Blood Urea Nitrogen 9 mg/dL (6-20); Calcium 8.1 mg/dL (8.6-10.4); Carbon Dioxide 21 mmol/L (22-30); Chloride 102 mmol/L (96-108); Globulin 3.4 gm/dL (2.2-3.7); Glomerular Filtration Rate 107; Glucose 95 mg/dL (70-105); Lactate Dehydrogenase 127 U/L (135-225); Phosphorous 2.4 mg/dL (2.5-4.5); Triglycerides 125 mg/dL (<150); Uric Acid 3.1 mg/dL (2.5-8.0)
--- NOTE | 2019-12-27 14:58 | General Surgery Progress Note ---
SUBJECTIVE Subjective Patient information: Note initiated : 12/27/19 at 2:55 pm Service Date, if different from initiated Date: [] Patient: Anton Novoa 39 y/o M admitted on 12/23/19 for Abdominal Pain. Chief Complaint: [] Principal diagnosis: GI bleed; perforated gastric ulcer; blood loss anemia Interval history: . Patient feels much better. He has tolerated clear liquids without difficulty. The PATRICK drainage is totally serous without any bilious content. He denies nausea or vomiting. White blood count 11.5, hemoglobin 7.9, hematocrit 25, potassium 3.2, BUN 9, creatinine 0.4, phosphorus 2.4 Constitutional Vitals: Vital Signs Temp Pulse Resp BP Pulse Ox 98.8 F 87 22 124/84 96 12/27/19 11:56 12/27/19 11:56 12/27/19 11:56 12/27/19 11:56 12/27/19 11:56 Period Temp Pulse Resp BP Sys/Amni Pulse Ox Last 24 Hr 98.3 F-99.8 F 86-102 18-24 107-131/73-90 93-96 Intake and Output 12/27/19 12/27/19 12/27/19 05:59 13:59 21:59 Intake Total 1400 410 Output Total 800 Balance 600 410 Intake & Output: Intake & Output 12/27/19 12/27/19 12/27/19 05:59 13:59 21:59 Intake Total 1400 410 Output Total 800 Balance 600 410 Intake: IV 1250 50 Sodium Chloride 0.9% 1,000 ml @ 1000 150 mls/hr IV .Q6H40M T[facility]Y Rx#: [id number] Zosyn 3.375 gm In Dextrose 5% 50 50 in Water 50 ml @ 100 mls/hr IV Q6H T[facility] Rx#:[id number] Oral 150 360 Output: Void Amount 800 Other: Meal Lunch Percent of Meal Consumed 25% Feeding Ability Independent Urine Appearance Clear Urine Color Bright Yellow Stool Size Small Stool Color Brown Stool Consistency Loose # Voids 1 Head Head exam: Present atraumatic, normal inspection and normocephalic Eye Eye exam: Present EOMI and PERRL Pupils: Present normal accommodation and PERRL ENT ENT exam: Present normal exam and normal oropharynx Respiratory Respiratory exam: Present normal respiratory exam and CTAB; Absent rales, rho nchi and wheezes Cardiovascular Cardiovascular exam: Present normal rate and rhythm, RRR, +S1, +S2 and tachycardia (mild persistent tachycardia in the 100s) GI/Abdominal GI/Abdominal exam: Present diminished bowel sounds, distended and tenderness (incisional tenderness) Additional comments: PATRICK drainage is serous; incision is healing nicely; good active bowel sounds Extremities Exam Extremities exam: Present full ROM and neurovascular intact Back Exam Back exam: Present normal inspection Psychiatric Psychiatric exam: Present normal affect and normal mood Skin Skin exam: Present intact, normal color and warm A/P Assessment and plan (1) Perforated peptic ulcer: Status: Acute (2) Acute blood loss anemia: Status: Acute Narrative A/P Narrative: Gastrografin upper GI series Potassium phosphate rider 40 mEq 2. Advance diet. If upper GI does not demonstrate a leak Time Spent With Patient Time: Total time spent is greater than 50% in coordination of care (as documented) at patient's floor/unit and/or counseling patient:
[2019-12-27] MEDS ORDERED: DIATRIZOATE MEGLU/DIATRIZO SOD 30 ML BOTTLE PO ONE (15:39)
--- NOTE | 2019-12-27 15:48 | XRay Report ---
HISTORY: Postop repair of perforated gastric ulcer in the distal antrum FINDINGS: Patient was given Gastrografin contrast orally. There is normal oral and pharyngeal motility. The barium passed promptly through the esophagus into the stomach with no delay. The thoracic esophagus is normal. He was nauseated intermittently had some reflux. The cardia fundus and body of the stomach are normal. Distal antrum of stomach adjacent to the pylorus is distorted. There is no extravasation of contrast. Contrast did pass through the pylorus into normal duodenum. There are multiple. There is a surgical drain adjacent to the antrum. IMPRESSION: Moderate distortion of the distal gastric antrum which may be a combination of ulcer and postsurgical change. No gastric outlet obstruction No perforation Postoperative ileus Interpreted and Authenticated by: Tano Richardson 12/27/19
[2019-12-27] MEDS: POTASSIUM PHOSPHATE 40 MEQ in DEXTROSE 5% IN WATER 500 ML IV SCH ×2 (17:58→22:27)
[2019-12-28] MEDS: PIPERACILLIN SODIUM/TAZOBACTAM 3.375 GM in DEXTROSE 5% IN WATER 50 ML IV SCH ×5 (00:20→23:25)
[2019-12-28] MEDS: METOCLOPRAMIDE 10 MG/2 ML VIAL IV SCH ×5 (00:21→23:25)
[2019-12-28] MEDS: HYDROmorphone 1 MG/ML SYRINGE IV PRN ×3 (00:21→12:01)
[2019-12-28] MEDS: ONDANSETRON 4 MG/2 ML VIAL IV PRN ×2 (00:28→10:09)
[2019-12-28] MEDS: ACETAMINOPHEN 1,000 MG/100 ML BOTTLE IV SCH ×4 (04:12→22:06)
[2019-12-28] MEDS: 0.9 % SODIUM CHLORIDE 1,000 ML IV SCH ×2 (04:14→14:06)
[2019-12-28] MEDS: PANTOPRAZOLE 40 MG VIAL IV SCH ×2 (06:58→17:20)
--- NOTE | 2019-12-28 07:36 | Operative Note ---
PREOPERATIVE DIAGNOSIS: Perforated viscus with peritonitis. POSTOPERATIVE DIAGNOSIS: Perforated gastric ulcer with peritonitis, upper GI bleed. PROCEDURE: Laparotomy with total peritoneal lavage and closure of gastric ulcer, primarily with Selvin patch closure. FINDINGS: Extensive peritonitis with large volume of gastric fluid in the peritoneal cavity. DESCRIPTION OF PROCEDURE: Under general anesthesia, the patient's abdomen was prepped and draped in a sterile field. Time-out procedure was carried out as per protocol. A midline incision was made. There was a large volume of bloody bilious drainage in the peritoneal cavity. The peritoneal cavity was irrigated with multiple liters of irrigating fluid. Laparotomy sponges were used to gently wipe the bilious exudate off the small bowel. There was a very large perforation of the lesser curvature slightly proximal to the pylorus. The edges were quite sharp, though they were thickened. Six sutures of 2-0 silk were used to close the ulcer proper. These were tied. A patch of omentum was taken from the proximal transverse colon, leaving the vascular pedicle intact. It was sutured over the area of the closure. The sutures were tied to hold it in place. There was no leak of air or fluid at the completion of the repair. The peritoneum was irrigated once more. A Nick drain was placed above and below the area of the repair and brought out through two separate incisions in the right upper quadrant. Nasogastric tube was positioned in the stomach. Peritoneum and fascia were closed with #1 Prolene. Subcutaneous tissue was irrigated and closed with 2-0 Monocryl. Skin was closed with krystle. Drains were secured with 2-0 nylon. The patient tolerated the procedure well. He was awakened and transferred to a bed and taken to the postanesthetic care unit in a satisfactory condition. LCS:roberto Job ID: [id number] Doc ID: [id number] Irene Paulson M.D.
[2019-12-28 08:10] LABS: Basophils # (Auto) 0.03 K/mcL (0.00-0.20); Basophils % (Auto) 0.3 % (0.0-2.0); Eosinophils # (Auto) 0.33 K/mcL (0.00-0.70); Eosinophils % (Auto) 3.4 % (0.0-7.0); Hematocrit 26.7 % (41.0-55.0); Hemoglobin 8.4 g/dL (13.5-16.5); Lymphocytes # (Auto) 1.22 K/mcL (1.50-4.80); Lymphocytes % (Auto) 12.5 % (15.0-49.0); Mean Corpuscular HGB Conc 31.5 g/dL (31.0-36.0); Mean Platelet Volume 9.9 fL (7.4-10.4); Monocytes # (Auto) 0.79 K/mcL (0.10-0.90); Monocytes % (Auto) 8.1 % (1.0-12.0); Neutrophils % (Auto) 75.7 % (38.0-78.0); Platelet Count 566 K/mcL (140-440); RBC 3.14 M/mcL (4.50-5.90); Red Cell Distribution Width 14.8 % (11.5-14.5); WBC 9.8 K/mcL (4.5-11.0)
[2019-12-28 08:21] LABS: ALT/SGPT 10 U/L (<40); AST/SGOT 11 U/L (<40); Albumin 2.6 gm/dL (3.2-5.2); Albumin/Globulin Ratio 0.8 (1.0-2.3); Alkaline Phosphatase 126 U/L (39-117); Bilirubin,Direct < 0.2 mg/dL (<0.3); Bilirubin,Total 0.3 mg/dL (0.1-1.0); Blood Urea Nitrogen 9 mg/dL (6-20); Calcium 8.4 mg/dL (8.6-10.4); Carbon Dioxide 23 mmol/L (22-30); Chloride 100 mmol/L (96-108); Globulin 3.4 gm/dL (2.2-3.7); Glomerular Filtration Rate 112; Glucose 104 mg/dL (70-105); Lactate Dehydrogenase 133 U/L (135-225); Phosphorous 3.4 mg/dL (2.5-4.5); Triglycerides 144 mg/dL (<150); Uric Acid 2.7 mg/dL (2.5-8.0)
--- NOTE | 2019-12-28 11:27 | General Surgery Progress Note ---
SUBJECTIVE Subjective Patient information: Note initiated : 12/28/19 at 11:22 am Service Date, if different from initiated Date: [] Patient: Anton Novoa 39 y/o M admitted on 12/23/19 for Abdominal Pain. Chief Complaint: [] Principal diagnosis: GI bleed; perforated gastric ulcer; blood loss anemia Interval history: patient states that he has had some nausea today and has had emesis 2. He also has significant abdominal distention as compared to yesterday. He however has had flatus and has had 2 bowel movements earlier today. He is afebrile. His PATRICK drainage is totally serous. Constitutional Vitals: Vital Signs Temp Pulse Resp BP Pulse Ox 98.7 F 102 H 18 133/93 92 12/28/19 07:50 12/28/19 07:50 12/28/19 07:50 12/28/19 07:50 12/28/19 07:50 Period Temp Pulse Resp BP Sys/Amin Pulse Ox Last 24 Hr 98.1 F-98.8 F 82-102 18-24 119-133/80-93 92-96 Intake and Output 12/27/19 12/28/19 12/28/19 21:59 05:59 13:59 Intake Total 1059 490 50 Output Total 15 500 Balance 1044 -10 50 Weight 201 lb Intake & Output: Intake & Output 12/27/19 12/28/19 12/28/19 21:59 05:59 13:59 Intake Total 1059 490 50 Output Total 15 500 Balance 1044 -10 50 Weight 201 lb Intake: IV 659 250 50 Zosyn 3.375 gm In Dextrose 5% 50 50 50 in Water 50 ml @ 100 mls/hr IV Q6H [facility] Rx#:[id number] Potassium Phosphate 40 Meq In 509 Dextrose 5% in Water 500 ml @ 127.273 mls/hr IV Q4H [facility] Rx#: [id number] Oral 400 240 Output: Drainage 15 Abdomen A 15 Emesis 500 Other: Meal Dinner Percent of Meal Consumed 0% Feeding Ability Independent Stool Size Small Moderate Stool Color Brown Brown Stool Consistency Loose Liquid Watery Loose # Voids 1 # Bowel Movements 1 1 # of times incontinent of 1 Bowels Head Head exam: Present atraumatic, normal inspection and normocephalic Eye Eye exam: Present EOMI and PERRL Pupils: Present normal accommodation and PERRL ENT ENT exam: Present normal exam and normal oropharynx Neck Neck exam: Present full ROM and normal inspection; Absent tenderness Respiratory Respiratory exam: Present normal respiratory exam and CTAB; Absent rales, rhonchi and wheezes Cardiovascular Cardiovascular exam: Present normal rate and rhythm, RRR, +S1, +S2 and tachycardia (mild persistent tachycardia in the 100s) GI/Abdominal GI/Abdominal exam: Present diminished bowel sounds, distended and tenderness (incisional tenderness) Additional comments: PATRICK drainage is serous; incision is healing nicely; good active bowel sounds Extremities Exam Extremities exam: Present full ROM and neurovascular intact Neurological Exam Neurological exam: Present alert, CN II-XII intact, oriented X3 and reflexes normal Psychiatric Psychiatric exam: Present normal affect and normal mood Skin Skin exam: Present intact, normal color and warm A/P Assessment and plan (1) Perforated peptic ulcer: Status: Acute (2) Upper gastrointestinal bleeding: Status: Acute (3) Acute blood loss anemia: Status: Acute Narrative A/P Narrative: clear liquids as tolerated. Delay advancing diet. Check abdominal x-rays in the morning Time Spent With Patient Time: Total time spent is greater than 50% in coordination of care (as documented) at patient's floor/unit and/or counseling patient:
[2019-12-28] MEDS: MEPERIDINE 25 MG/ML SYRINGE IV PRN ×3 (17:20→22:15)
[2019-12-29] MEDS: 0.9 % SODIUM CHLORIDE 1,000 ML IV SCH ×4 (02:47→19:51)
[2019-12-29] MEDS: ACETAMINOPHEN 1,000 MG/100 ML BOTTLE IV SCH ×4 (04:25→22:35)
[2019-12-29] MEDS: MEPERIDINE 25 MG/ML SYRINGE IV PRN ×6 (04:30→22:44)
[2019-12-29] MEDS: PIPERACILLIN SODIUM/TAZOBACTAM 3.375 GM in DEXTROSE 5% IN WATER 50 ML IV SCH ×3 (05:41→17:07)
[2019-12-29] MEDS: METOCLOPRAMIDE 10 MG/2 ML VIAL IV SCH ×3 (05:42→17:32)
[2019-12-29] MEDS: PANTOPRAZOLE 40 MG VIAL IV SCH ×2 (07:25→17:07)
[2019-12-29 07:48] LABS: ALT/SGPT 25 U/L (<40); AST/SGOT 35 U/L (<40); Albumin 2.1 gm/dL (3.2-5.2); Albumin/Globulin Ratio 0.7 (1.0-2.3); Alkaline Phosphatase 123 U/L (39-117); Bilirubin,Direct < 0.2 mg/dL (<0.3); Bilirubin,Total 0.2 mg/dL (0.1-1.0); Blood Urea Nitrogen 5 mg/dL (6-20); Calcium 7.8 mg/dL (8.6-10.4); Carbon Dioxide 23 mmol/L (22-30); Chloride 101 mmol/L (96-108); Glomerular Filtration Rate 112; Glucose 89 mg/dL (70-105); Lactate Dehydrogenase 171 U/L (135-225); Phosphorous 2.4 mg/dL (2.5-4.5); Triglycerides 120 mg/dL (<150); Uric Acid 2.3 mg/dL (2.5-8.0)
--- NOTE | 2019-12-29 08:34 | XRay Report ---
HISTORY: Abdominal pain, follow-up ileus, status post recent repair of a perforated gastric ulcer FINDINGS: There are multiple dilated segments of small intestine which contain air-fluid levels. No free intra-abdominal air is present. There is mild atelectasis in the basilar segments of both lower lobes. The oral contrast which was administered on 12/27/19 has passed into the colon. The colon is normal in caliber and contains no air-fluid levels. There are surgical drains adjacent to the decompressed stomach.. IMPRESSION: Moderate postoperative ileus Interpreted and Authenticated by: Tano Richardson 12/29/19
--- NOTE | 2019-12-29 12:16 | General Surgery Progress Note ---
SUBJECTIVE Subjective Patient information: Note initiated : 12/29/19 at 11:58 am Service Date, if different from initiated Date: [] Patient: Anton Novoa 39 y/o M admitted on 12/23/19 for Abdominal Pain. Chief Complaint: [] Principal diagnosis: GI bleed; perforated gastric ulcer; blood loss anemia Interval history: patient continues to feel better. He has no nausea, and he's had copious amounts of flatus and bowel movement. Abdominal distention is improved. Abdominal x-rays revealed decreased gas in the small bowel and colon. Potassium 3.5, BUN 5, creatinine 0.8. Constitutional Vitals: Vital Signs Temp Pulse Resp BP Pulse Ox 98.3 F 83 18 102/67 93 12/29/19 07:34 12/29/19 07:34 12/29/19 07:34 12/29/19 07:34 12/29/19 07:34 Period Temp Pulse Resp BP Sys/Amin Pulse Ox Last 24 Hr 98.3 F-99.7 F 83-101 17-20 102-130/67-90 91-93 Intake and Output 12/28/19 12/29/19 12/29/19 21:59 05:59 13:59 Intake Total 850 1600 Output Total 8 505 Balance 842 1095 Weight 202 lb Intake & Output: Intake & Output 12/28/19 12/29/19 12/29/19 21:59 05:59 13:59 Intake Total 850 1600 Output Total 8 505 Balance 842 1095 Weight 202 lb Intake: IV 150 1250 Sodium Chloride 0.9% 1,000 ml @ 1000 100 mls/hr IV .Q10H [facility] Rx#: [id number] Zosyn 3.375 gm In Dextrose 5% 50 50 in Water 50 ml @ 100 mls/hr IV Q6H [facility] Rx#:[id number] Oral 700 350 Output: Drainage 8 5 Abdomen A 3 2 Abdomen B 5 3 Void Amount 500 Other: Meal Dinner Percent of Meal Consumed 50% Feeding Ability Independent Urine Appearance Clear Clear Urine Color Bright Yellow Bright Yellow Urine Odor Normal Stool Size Moderate Moderate Stool Color Brown Brown Stool Consistency Liquid Liquid Loose Loose # Voids 1 2 # Bowel Movements 1 1 Head Head exam: Present atraumatic, normal inspection and normocephalic Eye Eye exam: Present EOMI and PERRL Pupils: Present normal accommodation and PERRL ENT ENT exam: Present normal exam and normal oropharynx Neck Neck exam: Present full ROM and normal inspection; Absent tenderness Respiratory Respiratory exam: Present normal respiratory exam and CTAB; Absent rales, rhonchi and wheezes Cardiovascular Cardiovascular exam: Present normal rate and rhythm, RRR, +S1, +S2 and tachycardia (mild persistent tachycardia in the 100s) GI/Abdominal GI/Abdominal exam: Present diminished bowel sounds, distended and tenderness (incisional tenderness) Additional comments: PATRICK drainage is serous; incision is healing nicely; good active bowel sounds Extremities Exam Extremities exam: Present full ROM and neurovascular intact Back Exam Back exam: Present normal inspection Neurological Exam Neurological exam: Present alert, CN II-XII intact, oriented X3 and reflexes normal Psychiatric Psychiatric exam: Present normal affect and normal mood Skin Skin exam: Present intact, normal color and warm A/P Assessment and plan (1) Perforated peptic ulcer: Status: Acute (2) Acute blood loss anemia: Status: Acute (3) Upper gastrointestinal bleeding: Status: Acute Narrative A/P Narrative: advance diet. Check labs in the morning. Probable discharge tomorrow Time Spent With Patient Time: Total time spent is greater than 50% in coordination of care (as documented) at patient's floor/unit and/or counseling patient:
[2019-12-30] MEDS: METOCLOPRAMIDE 10 MG/2 ML VIAL IV SCH ×3 (00:20→12:59)
[2019-12-30] MEDS: PIPERACILLIN SODIUM/TAZOBACTAM 3.375 GM in DEXTROSE 5% IN WATER 50 ML IV SCH ×3 (00:20→12:15)
[2019-12-30] MEDS: ACETAMINOPHEN 1,000 MG/100 ML BOTTLE IV SCH ×3 (04:19→16:53)
[2019-12-30] MEDS: MEPERIDINE 25 MG/ML SYRINGE IV PRN (04:54)
[2019-12-30] MEDS: 0.9 % SODIUM CHLORIDE 1,000 ML IV SCH ×2 (05:58→16:53)
[2019-12-30] MEDS: PANTOPRAZOLE 40 MG VIAL IV SCH (07:12)
--- NOTE | 2019-12-30 13:16 | Discharge Summary ---
Discharge Provider Provider Patient information: Note initiated : 12/30/19 at 1:12 pm Service Date, if different from initiated Date: [] Patient: Anton Novoa 39 y/o M admitted on 12/23/19 for Abdominal Pain. Chief Complaint: [] Date of admission: 12/23/19 15:20 Discharge date: 12/30/19 Primary care physician: Caitlin Deleon MD Admitting clinician: Irene Paulson Attending physician on admission: Irene Paulson Consults: 12/24/19 09:07 Consult to Physician [CONS] Routine Comment: Consulting Provider: Irene Paulson Reason For Exam: Physician to Consult Attending physician on discharge: Irene Paulson Discharging clinician: Irene Paulson COURSE Hospital Course Hospital course: 39-year-old male who presented with a four-day history of severe abdominal pain with coffee-ground emesis and abdominal distention. He was seen in the emergency room with leukocytosis and abdominal x-ray showing free air. This was confirmed by CT which also showed fluid surrounding the distal antrum and duodenum. He was stabilized and underwent laparotomy and was found to have a perforated distal antral ulcer with major peritonitis. A low peritoneal lavage was done and Gram patch closure of the ulcer was carried out. He tolerated surgery well. He has been on antibiotics and has remained stable. At the present time he is afebrile and his leukocytosis has resolved. He is tolerating diet and is having regular bowel movements. He is stable for discharge home Discharge diagnosis: perforated gastric ulcer Secondary discharge diagnosis: acute peritonitis. Postoperative ileus History of methamphetamine use Reason for admission: acute perforated viscus, sepsis Procedures: laparotomy with Selvin patch closure of perforated antral ulcer and peritoneal lavage Pertinent studies/significant findings: CT of abdomen and pelvis Complications: none Time Spent with Patient Time attestation: Total time spent providing and/or coordinating discharge services: Physical Examination Vital Signs Vital signs: Temp Pulse Resp BP Pulse Ox 98 F 80 18 115/78 94 12/30/19 08:00 12/30/19 08:00 12/30/19 08:00 12/30/19 08:00 12/30/19 08:00 General physical appearance General physical exam: moderate distress and moderate pain Eyes Eye exam: PERRL and normal ocular movement ENT ENT exam: negative no hearing loss Head Head exam IM: Present atraumatic, normal inspection and normocephalic Cardiovascular Cardiovascular exam IM: Present normal rate and rhythm, RRR, +S1 and +S2; Absent JVD Respiratory Respiratory exam: normal expansion, normal respiratory effort, clear to percussion and clear to auscultation Abdomen Abdomen: Present soft, tender (tenderness along the incision and drain site), bowel sounds, guarding and distended Integumentary Integumentary: Present no rash, no growths and no abnormal pigmentation Neurologic Neurologic: Present normal coordination and normal sensation Musculoskeletal Musculoskeletal: Present normal gait and normal posture Psychiatric Psychiatric: Present oriented to time, oriented to person, oriented to place, speech is normal and memory intact Discharge Plan Patient/Caregiver Discharge Instructions Activity: increase activity as tolerated Diet: Regular Diet Prescriptions: New sucralfate [Carafate] 1 GM tablet 1 g PO QIDP PRN (Reason: gastric ulcer) Qty: 120 RF: 3 oxycodone-acetaminophen [Endocet] 10-325 mg Tablet 1 tab PO Q4H PRN (Reason: Pain) Qty: 60 RF: 0 pantoprazole 40 mg Tablet,Delayed Release (Dr/Ec) 40 mg PO BIDAC Qty: 60 RF: 3 Follow Up Plan Follow up with: Irene Paulson MD [Physician] - 01/15/20 ( contact the officeto confirm appointment time and date) Caitlin Deleon MD [Primary Care Provider] - Patient Disposition: Home, Self-Care Prognosis: Good Rehab Potential: Good I certify that the patient requires SNF services: No Overall status at discharge: patient is progressing back to baseline Discharge Orders: Discharge Order (Routine); Ordered 12/30/19 Ordered By: Irene Paulson Pending Pending Pending: Resuscitation Status Full Code Diet GI Soft/Transitional Start WedDec 28 1329 Benzocaine (Cetacaine) 1 spray TOPICAL ONCE PRN PRN Reason: Pain Last Admin: 12/24/19 21:16 Dose: 1 spray Documented by: KAYLEE Diphenhydramine HCl (Benadryl) 50 mg IV HSP PRN PRN Reason: Insomnia Last Admin: 12/26/19 22:27 Dose: 50 mg Documented by: Admin: 12/25/19 22:11 Dose: 50 mg Documented by: KAYLEE Hydromorphone HCl (Dilaudid) 1 mg IV Q2HP PRN; Protocol PRN Reason: Per Pain Protocol Last Admin: 12/28/19 12:01 Dose: 0.5 mg Documented by: Admin: 12/28/19 05:29 Dose: 1 mg Documented by: Admin: 12/28/19 00:21 Dose: 1 mg Documented by: Admin: 12/27/19 19:11 Dose: 1 mg Documented by: Admin: 12/27/19 12:09 Dose: 1 mg Documented by: Admin: 12/27/19 07:28 Dose: 1 mg Documented by: JERRY Piperacillin Sod/Tazobactam (Sod 3.375 gm/ Dextrose) 50 mls @ 100 mls/hr IV Q6H [facility]; Protocol Last Admin: 12/30/19 12:15 Dose: 100 mls/hr Documented by: Infusion: 12/30/19 10:46 Dose: 0 mls/hr Documented by: Admin: 12/30/19 05:57 Dose: 100 mls/hr Documented by: Infusion: 12/30/19 00:50 Dose: 0 mls/hr Documented by: Admin: 12/30/19 00:20 Dose: 100 mls/hr Documented by: Infusion: 12/29/19 17:37 Dose: 100 mls/hr Documented by: Admin: 12/29/19 17:07 Dose: 100 mls/hr Documented by: Infusion: 12/29/19 16:48 Dose: 0 mls/hr Documented by: Admin: 12/29/19 12:19 Dose: 100 mls/hr Documented by: Infusion: 12/29/19 06:11 Dose: 100 mls/hr Documented by: Admin: 12/29/19 05:41 Dose: 100 mls/hr Documented by: Infusion: 12/29/19 00:00 Dose: 0 mls/hr Documented by: Admin: 12/28/19 23:25 Dose: 100 mls/hr Documented by: Infusion: 12/28/19 18:17 Dose: 100 mls/hr Documented by: Admin: 12/28/19 17:47 Dose: 100 mls/hr Documented by: Infusion: 12/28/19 12:25 Dose: 0 mls/hr Documented by: Admin: 12/28/19 11:54 Dose: 100 mls/hr Documented by: Infusion: 12/28/19 07:40 Dose: 0 mls/hr Documented by: Admin: 12/28/19 05:29 Dose: 100 mls/hr Documented by: Infusion: 12/28/19 00:50 Dose: 100 mls/hr Documented by: Admin: 12/28/19 00:20 Dose: 100 mls/hr Documented by: Infusion: 12/27/19 17:58 Dose: 100 mls/hr Documented by: Admin: 12/27/19 17:28 Dose: 100 mls/hr Documented by: Infusion: 12/27/19 12:33 Dose: 0 mls/hr Documented by: Admin: 12/27/19 12:03 Dose: 100 mls/hr Documented by: Infusion: 12/27/19 06:29 Dose: 100 mls/hr Documented by: Admin: 12/27/19 05:59 Dose: 100 mls/hr Documented by: Infusion: 12/27/19 01:05 Dose: 0 mls/hr Documented by: Admin: 12/27/19 00:31 Dose: 100 mls/hr Documented by: Infusion: 12/26/19 18:08 Dose: 100 mls/hr Documented by: Admin: 12/26/19 17:38 Dose: 100 mls/hr Documented by: Infusion: 12/26/19 14:08 Dose: 0 mls/hr Documented by: Admin: 12/26/19 13:38 Dose: 100 mls/hr Documented by: Cosigned by: NEYMAR Infusion: 12/26/19 06:20 Dose: 0 mls/hr Documented by: Admin: 12/26/19 05:50 Dose: 100 mls/hr Documented by: Infusion: 12/26/19 00:47 Dose: 100 mls/hr Documented by: Admin: 12/26/19 00:17 Dose: 100 mls/hr Documented by: Infusion: 12/25/19 18:01 Dose: 100 mls/hr Documented by: Admin: 12/25/19 17:31 Dose: 100 mls/hr Documented by: Infusion: 12/25/19 11:28 Dose: 0 mls/hr Documented by: Admin: 12/25/19 11:28 Dose: 100 mls/hr Documented by: Infusion: 12/25/19 06:22 Dose: 100 mls/hr Documented by: Admin: 12/25/19 05:52 Dose: 100 mls/hr Documented by: Infusion: 12/25/19 00:30 Dose: 100 mls/hr Documented by: Admin: 12/25/19 00:00 Dose: 100 mls/hr Documented by: Infusion: 12/24/19 17:40 Dose: 100 mls/hr Documented by: Admin: 12/24/19 17:10 Dose: 100 mls/hr Documented by: Infusion: 12/24/19 13:22 Dose: 100 mls/hr Documented by: Admin: 12/24/19 12:52 Dose: 100 mls/hr Documented by: Infusion: 12/24/19 06:03 Dose: 100 mls/hr Documented by: Admin: 12/24/19 05:33 Dose: 100 mls/hr Documented by: Infusion: 12/24/19 04:03 Dose: 0 mls/hr Documented by: Admin: 12/24/19 00:18 Dose: 100 mls/hr Documented by: Infusion: 12/23/19 17:50 Dose: 0 mls/hr Documented by: [email or web address] Admin: 12/23/19 17:18 Dose: 100 mls/hr Documented by: [email or web address] Acetaminophen (Ofirmev) 1,000 mg in 100 mls @ 200 mls/hr IV Q6H [facility]; Protocol Last Infusion: 12/30/19 12:36 Dose: 0 mls/hr Documented by: Admin: 12/30/19 10:45 Dose: 200 mls/hr Documented by: Infusion: 12/30/19 06:15 Dose: 0 mls/hr Documented by: Admin: 12/30/19 04:19 Dose: 200 mls/hr Documented by: Infusion: 12/29/19 23:58 Dose: 0 mls/hr Documented by: Admin: 12/29/19 22:35 Dose: 200 mls/hr Documented by: Infusion: 12/29/19 16:48 Dose: 0 mls/hr Documented by: Admin: 12/29/19 16:03 Dose: 200 mls/hr Documented by: Infusion: 12/29/19 12:21 Dose: 0 mls/hr Documented by: Admin: 12/29/19 11:11 Dose: 200 mls/hr Documented by: Infusion: 12/29/19 05:00 Dose: 0 mls/hr Documented by: Admin: 12/29/19 04:25 Dose: 200 mls/hr Documented by: Infusion: 12/28/19 22:40 Dose: 0 mls/hr Documented by: Admin: 12/28/19 22:06 Dose: 200 mls/hr Documented by: Infusion: 12/28/19 16:27 Dose: 0 mls/hr Documented by: Admin: 12/28/19 15:53 Dose: 200 mls/hr Documented by: Infusion: 12/28/19 10:33 Dose: 0 mls/hr Documented by: Admin: 12/28/19 10:03 Dose: 200 mls/hr Documented by: Infusion: 12/28/19 04:42 Dose: 200 mls/hr Documented by: Admin: 12/28/19 04:12 Dose: 200 mls/hr Documented by: Infusion: 12/27/19 22:56 Dose: 200 mls/hr Documented by: Admin: 12/27/19 22:26 Dose: 200 mls/hr Documented by: Infusion: 12/27/19 16:28 Dose: 0 mls/hr Documented by: Admin: 12/27/19 15:53 Dose: 200 mls/hr Documented by: Infusion: 12/27/19 10:22 Dose: 200 mls/hr Documented by: Admin: 12/27/19 09:52 Dose: 200 mls/hr Documented by: Infusion: 12/27/19 04:52 Dose: 200 mls/hr Documented by: Admin: 12/27/19 04:22 Dose: 200 mls/hr Documented by: Infusion: 12/27/19 00:32 Dose: 0 mls/hr Documented by: Admin: 12/26/19 22:28 Dose: 200 mls/hr Documented by: Infusion: 12/26/19 17:09 Dose: 0 mls/hr Documented by: Admin: 12/26/19 16:39 Dose: 200 mls/hr Documented by: Infusion: 12/26/19 11:00 Dose: 0 mls/hr Documented by: Cosigned by: NEYMAR Admin: 12/26/19 10:21 Dose: 200 mls/hr Documented by: Cosigned by: NEYMAR Infusion: 12/26/19 04:48 Dose: 0 mls/hr Documented by: Admin: 12/26/19 04:00 Dose: 200 mls/hr Documented by: Infusion: 12/25/19 22:41 Dose: 200 mls/hr Documented by: Admin: 12/25/19 22:11 Dose: 200 mls/hr Documented by: KAYLEE Sodium Chloride (Sodium Chloride 0.9%) 1,000 mls @ 100 mls/hr IV .Q10H Critical [facility] hospital Admin: 12/30/19 05:58 Dose: 100 mls/hr Documented by: Infusion: 12/30/19 02:04 Dose: 100 mls/hr Documented by: Admin: 12/29/19 19:51 Dose: Not Given Documented by: Admin: 12/29/19 16:04 Dose: 100 mls/hr Documented by: Infusion: 12/29/19 12:47 Dose: 100 mls/hr Documented by: Admin: 12/29/19 08:25 Dose: Not Given Documented by: Admin: 12/29/19 02:47 Dose: 100 mls/hr Documented by: Infusion: 12/29/19 00:06 Dose: 100 mls/hr Documented by: Admin: 12/28/19 14:06 Dose: 100 mls/hr Documented by: Admin: 12/28/19 04:14 Dose: Not Given Documented by: Infusion: 12/28/19 03:58 Dose: 100 mls/hr Documented by: Admin: 12/27/19 17:58 Dose: 100 mls/hr Documented by: JERRY Meperidine HCl (Demerol) 25 mg IV Q1-2HP PRN; Protocol PRN Reason: Per Pain Protocol Last Admin: 12/30/19 04:54 Dose: 25 mg Documented by: Admin: 12/29/19 22:44 Dose: 25 mg Documented by: Admin: 12/29/19 20:06 Dose: 25 mg Documented by: Admin: 12/29/19 16:04 Dose: 25 mg Documented by: Admin: 12/29/19 12:29 Dose: 25 mg Documented by: Admin: 12/29/19 06:34 Dose: 25 mg Documented by: Admin: 12/29/19 04:30 Dose: 25 mg Documented by: Admin: 12/28/19 22:15 Dose: 25 mg Documented by: Admin: 12/28/19 20:12 Dose: 25 mg Documented by: Admin: 12/28/19 17:20 Dose: 25 mg Documented by: Admin: 12/26/19 20:47 Dose: 25 mg Documented by: Admin: 12/26/19 16:41 Dose: 25 mg Documented by: Admin: 12/25/19 20:42 Dose: 25 mg Documented by: Admin: 12/25/19 17:22 Dose: 25 mg Documented by: Admin: 12/25/19 15:30 Dose: 25 mg Documented by: Admin: 12/25/19 11:37 Dose: 25 mg Documented by: Admin: 12/25/19 08:00 Dose: 25 mg Documented by: Admin: 12/25/19 03:56 Dose: 25 mg Documented by: Admin: 12/24/19 23:38 Dose: 25 mg Documented by: Admin: 12/24/19 21:10 Dose: 25 mg Documented by: Admin: 12/24/19 19:38 Dose: 25 mg Documented by: Admin: 12/24/19 15:57 Dose: 25 mg Documented by: [email or web address] Admin: 12/24/19 12:53 Dose: 25 mg Documented by: [email or web address] Metoclopramide HCl (Reglan) 10 mg IV Q6 Critical [facility] hospital Admin: 12/30/19 12:59 Dose: 10 mg Documented by: Admin: 12/30/19 05:58 Dose: 10 mg Documented by: Admin: 12/30/19 00:20 Dose: 10 mg Documented by: Admin: 12/29/19 17:32 Dose: 10 mg Documented by: Admin: 12/29/19 12:20 Dose: 10 mg Documented by: Admin: 12/29/19 05:42 Dose: 10 mg Documented by: Admin: 12/28/19 23:25 Dose: 10 mg Documented by: Admin: 12/28/19 17:47 Dose: 10 mg Documented by: Admin: 12/28/19 11:53 Dose: 10 mg Documented by: Admin: 12/28/19 05:29 Dose: 10 mg Documented by: Admin: 12/28/19 00:21 Dose: 10 mg Documented by: Admin: 12/27/19 17:28 Dose: 10 mg Documented by: Admin: 12/27/19 12:03 Dose: 10 mg Documented by: Admin: 12/27/19 05:58 Dose: 10 mg Documented by: Admin: 12/27/19 00:31 Dose: 10 mg Documented by: Admin: 12/26/19 17:44 Dose: 10 mg Documented by: Admin: 12/26/19 13:38 Dose: 10 mg Documented by: Cosigned by: NEYMAR Admin: 12/26/19 05:49 Dose: 10 mg Documented by: Admin: 12/26/19 00:17 Dose: 10 mg Documented by: Admin: 12/25/19 17:21 Dose: 10 mg Documented by: Admin: 12/25/19 11:28 Dose: 10 mg Documented by: Admin: 12/25/19 05:53 Dose: 10 mg Documented by: Admin: 12/24/19 23:38 Dose: 10 mg Documented by: Admin: 12/24/19 17:09 Dose: 10 mg Documented by: Admin: 12/24/19 12:52 Dose: 10 mg Documented by: Admin: 12/24/19 05:33 Dose: 10 mg Documented by: Admin: 12/24/19 00:18 Dose: 10 mg Documented by: Admin: 12/23/19 17:19 Dose: 10 mg Documented by: [email or web address] Ondansetron HCl (Zofran) 4 mg IV Q4HP PRN; Protocol PRN Reason: Nausea/Vomiting Last Admin: 12/28/19 10:09 Dose: 4 mg Documented by: Admin: 12/28/19 00:28 Dose: 4 mg Documented by: Admin: 12/24/19 08:25 Dose: 4 mg Documented by: [email or web address] Pantoprazole Sodium (Protonix) 40 mg IV BIDAC Critical [facility] hospital Admin: 12/30/19 07:12 Dose: 40 mg Documented by: Admin: 12/29/19 17:07 Dose: 40 mg Documented by: Admin: 12/29/19 07:25 Dose: 40 mg Documented by: Admin: 12/28/19 17:20 Dose: 40 mg Documented by: Admin: 12/28/19 06:58 Dose: 40 mg Documented by: Admin: 12/27/19 17:28 Dose: 40 mg Documented by: Admin: 12/27/19 07:18 Dose: 40 mg Documented by: Admin: 12/26/19 16:43 Dose: 40 mg Documented by: Admin: 12/26/19 07:56 Dose: 40 mg Documented by: Admin: 12/25/19 17:21 Dose: 40 mg Documented by: Admin: 12/25/19 07:42 Dose: 40 mg Documented by: Admin: 12/24/19 17:09 Dose: 40 mg Documented by: Admin: 12/24/19 08:04 Dose: 40 mg Documented by: Admin: 12/23/19 17:19 Dose: 40 mg Documented by: [email or web address] Shift Summary 12/30/19 05:20 Shift Summary by Lesley Yu Pt A&O x4. Up ad carlos. TEDs in place. Walked in the rosas once this shift. Demerol 25mg given x3 this shift for abdominal pain. Pt also receiving scheduled offirmev. Pt does not want dilaudid, stating that it makes him nauseous. Pt tolerating GI soft diet and had 2 soft BMs this shift. NS at 100mL/hr infusing into new 20g IV in left AC. Pt has midline incision with krystle and tegaderm, and PATRICK site with gauze, CDI. Active bowel tones. Minimal serous drainage out of JPs. Abdominal binder in place. VSS on RA. Will update at bedside. Initialized on 12/30/19 05:20 - END OF NOTE
[2020-01-04 23:17] LABS: Opiate Confirmation Positive
[2020-01-04 23:18] LABS: Cannabinoid Confirmation Positive
== END 2019-12-30 17:00 | disposition home or self-care (01) | DRG 326 ==
LOC: ED 10:30 → SUR 12:15 → MEDSUR 15:20
PROVIDERS: ADMIT Family Medicine Adult Medicine; ATTEND Family Medicine Adult Medicine